=== PATIENT | female | born 1990 | race African-American/Black ===

== ENCOUNTER 2017-07-07 07:48 | Emergency (ER) | payer MEDICAID, OTHER ==
[~2017-07-07] VITALS: Ht 167.6 cm; Wt 80.0 kg
[~2017-07-07 07:48] MED LIST: PREN-142 PO
[2017-07-07] MEDS ORDERED: ACETAMINOPHEN 500MG TABLET PO ONE (11:45)
[2017-07-07 12:37] LABS: CLARITY URINE CLEAR (CLEAR); COLOR URINE YELLOW (YELLOW); GLUCOSE URINE NEGATIVE (NEGATIVE); KETONES URINE NEGATIVE (NEGATIVE); LEUKOCYTE ESTERASE URINE 2+ (NEGATIVE); NITRITE URINE NEGATIVE (NEGATIVE); OCCULT BLOOD URINE NEGATIVE (NEGATIVE); PROTEIN URINE NEGATIVE (NEGATIVE); SPECIFIC GRAVITY URINE 1.015 (1.005-1.030); UROBILINOGEN URINE 0.2 E.U./dL (0.2-1.0)
[2017-07-07 13:30] VITALS: BP 111/68
== END 2017-07-07 13:43 | disposition home or self-care (01) ==
LOC: ER 07:58
DX: J02.8 Acute pharyngitis due to other specified organisms (principal); J06.9 Acute upper respiratory infection, unspecified
CPT/HCPCS: 81001; 99283

== ENCOUNTER 2018-11-13 20:29 | Observation (INO) | payer MEDICAID ==
[~2018-11-13] VITALS: Ht 175.3 cm; Wt 99.8 kg
[2018-11-13] MEDS ORDERED: CEFAZOLIN 2,000 MG in DEXT 5% WATER 100 ML IV STA (20:56)
[2018-11-13] MEDS ORDERED: ACETAMINOPHEN 325MG TABLET PO NR (21:00)
[2018-11-13] MEDS ORDERED: LACTATED RINGERS 1,000 ML IV ONE (21:00)
[2018-11-13] MEDS ORDERED: TERBUTALINE SULFATE 1MG/ML VIAL SUBCUT ONE (21:15)
== END 2018-11-13 23:40 | disposition home or self-care (01) ==
LOC: 8 EST LDRP 20:29
PROVIDERS: ADMIT Obstetrics & Gynecology; ATTEND Obstetrics & Gynecology
DX: O26.892 Other specified pregnancy related conditions, second trimester (principal); R10.2 Pelvic and perineal pain; R10.30 Lower abdominal pain, unspecified; M54.5 Low back pain; Z3A.27 27 weeks gestation of pregnancy
CPT/HCPCS: 96365; 96372; 99281; G0378; J0690; J3105; 59412; 96360; J7060; J7120

== ENCOUNTER 2020-04-24 11:44 | Emergency (ER) | payer MEDICAID ==
[~2020-04-24] VITALS: Ht 175.3 cm; Wt 95.0 kg
[~2020-04-24 11:44] MED LIST changes: -PREN-142 PO; +PRENATAL ONE T1 EACH PO
[2020-04-24 12:56] LABS: BASOPHILS % 0.2 % (0.0-2.0); EOSINOPHILS % 1.4 % (0.0-5.0); HEMATOCRIT. 39.3 % (36.0-48.0); HEMOGLOBIN. 13.4 g/dL (12.0-16.0); LYMPHOCYTES % 18.5 % (20.0-50.0); MEAN CORPUSCULAR HEMOGLOBIN 29.3 pg (28.0-32.0); MEAN CORPUSCULAR VOLUME 85.7 fL (81.0-99.0); MEAN PLATELET VOLUME 9.1 fl (7.4-10.4); MONOCYTES % 6.3 % (2.0-8.0); NEUTROPHILS % 73.6 % (40.0-76.0); PLATELET 169 x1000/uL (130-400); RED BLOOD CELL COUNT 4.58 mill/uL (4.2-5.4); RED CELL DISTRIBUTION WIDTH 13.4 % (11.6-14.6)
[2020-04-24 13:03] LABS: CHLORIDE 109 mEq/L (98-107)
[2020-04-24 13:41] LABS: HCG SCREEN NEGATIVE
[2020-04-24] MEDS ORDERED: MORPHINE SULFATE 4 MG/ML CPJ (NOT FOR IM USE) IV ONE (13:45)
[2020-04-24 16:00] VITALS: BP 109/78
== END 2020-04-24 16:45 | disposition home or self-care (01) ==
LOC: ER 11:44
DX: S20.212A Contusion of left front wall of thorax, initial encounter (principal); D57.1 Sickle-cell disease without crisis; R56.9 Unspecified convulsions; W17.89XA Other fall from one level to another, initial encounter; Y93.9 Activity, unspecified; Y92.9 Unspecified place or not applicable
CPT/HCPCS: 36415; 71045; 71250; 80053; 83880; 84484; 84703; 85025; 93005; 96374; 99285; J2270